=== PATIENT | female | born 2000 | race African-American/Black ===

== ENCOUNTER 2020-12-26 22:13 | Emergency (ER) | payer OTHER ==
[~2020-12-26] VITALS: Ht 162.6 cm; Wt 77.3 kg
[2020-12-26] MEDS ORDERED: PNV1TABL89 PO (22:23)
[2020-12-26 23:53] VITALS: BP 114/69
== END 2020-12-27 00:17 | disposition home or self-care (01) ==
LOC: EMS 22:13
DX: O36.8120 Decreased fetal movements, second trimester, not applicable or unspecified (principal); O26.892 Other specified pregnancy related conditions, second trimester; Z3A.27 27 weeks gestation of pregnancy
CPT/HCPCS: 76801; 76805; 76817; 99284; Z7502